=== PATIENT | male | born 1950 | race Caucasian/White ===

== ENCOUNTER 2018-11-03 12:48 | Inpatient (IN) | payer BC, MEDICARE ==
[~2018-11-03] VITALS: Ht 180.3 cm; Wt 99.0 kg
[2019-01-11] VITALS (9 sets, daily range): BP systolic 105–136; BP diastolic 58–83; PULSE 77–92; TEMP 8
[2019-01-11] MEDS ORDERED: FLOMAX 0.40.4 MG/CAP PO (06:17)
[2019-01-11] MEDS ORDERED: PRINZIDE 25 MG-1 TAB PO (06:18)
[2019-01-11] MEDS ORDERED: PRAVACHOL 20MG20 MG PO (06:18)
[2019-01-11] MEDS ORDERED: STOOL SOFTENER100 M2 PO (06:19)
[2019-01-11] MEDS ORDERED: ASPIRIN 81M81 MG/TA2 PO (06:19)
--- NOTE | 2019-01-11 13:33 | NUR ---
PT TO ROOM 348 PER BED WITH REPORT FROM [facility] @ 2523. PT IS A/O X3 LUNGS COARSE, MARTIN WITH REDDISH URINE IN BAG. MIGUELINA DRAIN TO LEFT SIDE OF ABD WITH SEROSANGUENOUS DRAINAGE IN DRAIN. RENTERIA SET INCISIONS X5 CDI. AT BEDSIDE.
--- NOTE | 2019-01-11 20:00 | NUR ---
Patient awake. Is alert and oriented x4. Has IVF infusing to left hand without redness or swelling. Has yoder catheter with yellow urine in tubing. MIGUELINA drain with red drainage, to bulb suction. Abdominal robotic sites glued and dry. MIGUELINA drain site with drainage on gauze. Taking scheduled pain meds and reports pain 2/10 at this time.
[2019-01-12] VITALS (7 sets, daily range): BP systolic 85–141; BP diastolic 45–85; PULSE 55–71; TEMP 97.5–98.4
--- NOTE | 2019-01-12 04:00 | NUR ---
Patient awake, drinking water without problem. Baird with yellow urine. Reports pain 6/10 with movement. MIGUELINA to bulb suction.
[2019-01-12 07:58] LABS: BASO % 0.2 % (0.0-2.0); EOS # 0.1 (0.0-0.7); EOS % 0.8 % (0-4.0); GRAN # 8.1 (1.4-6.5); LYMPH # 1.4 (1.2-3.4); LYMPH % 13.3 % (20.0-51.0); MEAN CELL VOLUME 92 fl (80.0-100.0); MEAN CORPUSCULAR HEMOGLOBIN 30 pg (27.0-31.0); MEAN CORPUSCULAR HGB CONC 33 g/dl (33.0-37.0); MEAN PLATELET VOLUME 10.6 fl (7.4-10.4); MONO # 0.8 (0.1-0.6); MONO % 7.3 % (1.7-9.3); PLATELET COUNT 152 K/mm3 (130-400); RED BLOOD COUNT 3.95 M/mm3 (4.20-5.60); REDCELL DISTRIBUTION WIDTH-CV 14.2 % (11.5-14.5)
[2019-01-12 08:07] LABS: HEMATOCRIT 36.4 % (42.0-52.0)
[2019-01-12 08:17] LABS: CALCIUM 7.9 mg/dL (8.4-10.2); CREATININE, serum 1.53 (0.66-1.25); POTASSIUM 4.2 mmol/L (3.4-5.0)
--- NOTE | 2019-01-12 09:10 | NUR ---
First visit from the nightclub manager. No needs right now.
--- NOTE | 2019-01-12 10:13 | NUR ---
PT UP TO RECLINER FOR BREAKFAST. PAIN WELL CONTROLLED WITH ERAS PROTOCOLS. DR TRAVIS CHECKED ON PT STATUS. WILL ROUND LATER TODAY.
--- NOTE | 2019-01-12 10:52 | NUR ---
CHERYLE met with the patient and patient's , Essie, to discuss discharge plan. The patient lives in [place] with his . He reports independence with ADLs prior to hospitalization and has a walker. The patient's PCP is Dr. Juan Leonard and he receives his medications at the [facility] in [place]. His reports no difficulties obtaining his meds. The patient's advanced directives are in his chart. The patient plans to return home with his upon discharge. No additional needs at this time.
--- NOTE | 2019-01-12 14:17 | NUR ---
PATIENT AMBULATING IN [place] INDEPENDENTLY WITH .
--- NOTE | 2019-01-12 20:00 | NUR ---
Patient ambulates in hallway with spouse, then to bed. Reports pain 3/10 to abdomen. MIGUELINA to bulb suction. Baird with yellow urine.
--- NOTE | 2019-01-12 21:30 | NUR ---
Patient takes HS meds, catheter cares given at this time. Reports pain is controlled at this time with just scheduled meds. SL to left hand without redness or swelling. MIGUELINA drain compressed.
[2019-01-13 04:44] VITALS: BP 91/54; PULSE 57; TEMP 98.2
[2019-01-13 07:06] LABS: CALCIUM 7.9 mg/dL (8.4-10.2); CREATININE, serum 1.29 (0.66-1.25); POTASSIUM 4.5 mmol/L (3.4-5.0)
--- NOTE | 2019-01-13 08:00 | NUR ---
PATIENT IS A&O. VSS. DENIES PAIN SITTING UP IN BEDSIDE CHAIR. MIGUELINA FLUID SENT TO LAB EARLY THIS AM. MARTIN TO DEPENDENT DRAINAGE WITH MOD AMOUNTS OF CLEAR YELLOW URINE NOTED. LEFT HAND IV TO INT. NO C/O N/V. AM MEDS GIVEN. HELD AM B/P MEDS DUE TO LOWER B/P OF 91/54. HEAD TO TOE ASSESSMENT COMPLETE. NO OTHER NEEDS. BREAKFAST AT BEDSIDE.
[2019-01-13 09:08] VITALS: BP 103/55; PULSE 61; TEMP 98.3
--- NOTE | 2019-01-13 09:30 | NUR ---
ERA'Zane MIGUELINA DRAIN PER ORDERS. COVERED SITE WITH GAUZE & OCCLUSIVE TAPE.
--- NOTE | 2019-01-13 11:49 | NUR ---
Initial visit; Patient thanked Accounts Receivable Collector for looking in on him and letting him know of the availability of spiritual care around the clock at [place].
[2019-01-13 12:05] VITALS: BP 122/59; PULSE 63; TEMP 98.2
[2019-01-13 16:19] VITALS: BP 116/59; PULSE 52; TEMP 98.4
[2019-01-13 19:45] VITALS: BP 136/66; PULSE 59; TEMP 97.8
--- NOTE | 2019-01-13 21:33 | NUR ---
PATIENT REPORTS SMALL STOOL AND GAS AFTER SUPPOSITORY. BACK TO BED AT THIS TIME
[2019-01-14 00:22] VITALS: BP 97/56; PULSE 85; TEMP 98.6
[2019-01-14 03:57] VITALS: BP 118/63; PULSE 66; TEMP 99
--- NOTE | 2019-01-14 05:50 | NUR ---
Patient up to bathroom, reports loose stools x2 this AM and remains passing gas. No concerns offered this AM. Is refusing Tylenol due to possible history of constipation while taking it.
--- NOTE | 2019-01-14 08:00 | NUR ---
PATIENT IS A&O. VSS. PATIENT REPORTS HE FEELS MUCH BETTER TODAY AND HAS LESS BLOATING. PATIENT IS PASSING GAS NOW AND HAD BM X2. ABDOMIN IS SLIGHTLY DISTENDED, SOFT AND WITH POSITIVE BOWL SOUNDS. NO C/O N/V. IV TO INT. PATIENT ATE 100% OF HIS BREAKFAST. AM MEDS GIVEN. HEAD TO TOE ASSESSMENT WNL. MARTIN TO DD WITH MOD AMOUNTS OF CLEAR YELLOW URINE NOTED. PATIENT HOPING TO DISCHARGE HOME LATER TODAY.
[2019-01-14 08:16] VITALS: BP 134/64; PULSE 74; TEMP 98.1
[2019-01-14 11:34] VITALS: BP 112/63; PULSE 66; TEMP 98.5
--- NOTE | 2019-01-14 13:47 | NUR ---
The patient is to discharge back home with his today, 01/14. SW presented and explained the IM form to the patient and patient's . The patient verbalized understanding, signed, and he was provided a copy. No additional needs at this time.
--- NOTE | 2019-01-14 14:50 | NUR ---
PATIENT DISCHARGING HOME VIA WHEELCHAIR TO PERONAL VEHICLE WITH . GAVE DETAILED DISCHARGE INSTRUCTIONS INCLUDING CATH CARE, LEG BAG TEACHING, SHOWERING, LAP SITES, MIGUELINA SITE AND FOLLOW UP. ANSWERED ALL QUESTIONS/CONCERNS. GAVE PATIENT PRESCRIPTION, CATH SUPPLIES AND FOLLOW UP APT. REMOVED PREVIOUS MIGUELINA SITE DRESSING AND APPLIED BANDAID. DC'D IV AND COVERED WITH GAUZE & COBAN. SENT PERSONAL ITEMS WITH PATIENT'S . PATIENT DISCHARGED.
== END 2019-01-14 14:30 | disposition home or self-care (01) | DRG 708 ==
LOC: SURG 01-11 05:42 → INPTSU 01-11 05:42 → SURG 01-11 07:30
PROVIDERS: ADMIT Urology
PROC: 07TC4ZZ Resection of Pelvis Lymphatic, Percutaneous Endoscopic Approach (ICD-10-PCS; 2019-01-11)
PROC: 0DNW4ZZ Release Peritoneum, Percutaneous Endoscopic Approach (ICD-10-PCS; 2019-01-11)
PROC: 0TNB4ZZ Release Bladder, Percutaneous Endoscopic Approach (ICD-10-PCS; 2019-01-11)
PROC: 8E0W4CZ Robotic Assisted Procedure of Trunk Region, Percutaneous Endoscopic Approach (ICD-10-PCS; 2019-01-11)
PROC: 0VT04ZZ Resection of Prostate, Percutaneous Endoscopic Approach (ICD-10-PCS; principal; 2019-01-11 07:30)
DX: C61 Malignant neoplasm of prostate (principal); E78.5 Hyperlipidemia, unspecified; I10 Essential (primary) hypertension; K66.0 Peritoneal adhesions (postprocedural) (postinfection); Z79.82 Long term (current) use of aspirin; Z88.0 Allergy status to penicillin; Z88.2 Allergy status to sulfonamides
CPT/HCPCS: A9284; J0690; J1885; J2704; J2710; J3010; J7120